=== PATIENT | female | born 1950 | race Caucasian/White ===

== ENCOUNTER → 2018-12-01 | Outpatient (CLI) | payer MEDICARE, OTHER ==
[~2018-12-01] MED LIST: ASCO500T20 PO; ATOR40TA70 PO; CALC-151 PO; CITA20TA4 PO; CYCL10TA9 PO; ESTR1PAT33 TD; MAGN100T3 PO; NF-FLON16G NS; OMEG-12 PO; OXYC1TAB12 PO; POTA99TA7 PO; VITA150T PO; [UNRECOGNIZED DRUG - CODE] PO
--- NOTE | 2018-12-01 13:36 | Diagnostic Imaging Report ---
INDICATION: Back pain and back spasm as well as pain extending into the left leg. TECHNIQUE: Multiplanar, multisequence imaging of the thoracic spine was performed without contrast. COMPARISON: No prior studies are available for comparison. FINDINGS: Curvature and alignment of the thoracic spine is normal. Vertebral body heights are maintained. The marrow signal intensity is unremarkable. No geographic marrow lesion or compression fracture is seen. Mild generalized disc desiccation is noted. No significant disc space narrowing is seen. The thoracic cord does show normal homogeneous signal intensity and normal morphology. No focal disc protrusion is seen. No central canal or neural foraminal narrowing is identified. The paraspinous tissues are unremarkable. IMPRESSION: Mild generalized thoracic spondylosis. No focal disc protrusion, central canal or neural foraminal stenosis is seen. No acute compression fracture is detected. Dictated by: Dictated on workstation # [id number]
== END ==
LOC: RAD 12:32
PROVIDERS: ATTEND Pain Medicine Interventional Pain Medicine
DX: M47.814 Spondylosis without myelopathy or radiculopathy, thoracic region (principal)
CPT/HCPCS: 72146

== ENCOUNTER 2019-10-10 05:34 | Outpatient (CLI) | payer MEDICARE, OTHER ==
[~2019-10-10] VITALS: Ht 165 cm; Wt 88.1 kg
[2019-10-10] MEDS ORDERED: CHOL5000 PO (10:57)
[2019-10-10] MEDS ORDERED: CITA10TA7 PO (10:57)
[2019-10-10] MEDS ORDERED: VITA1CAP19 PO (10:57)
[2019-10-10] MEDS ORDERED: ERGO50006 PO (10:57)
[2019-10-10] MEDS ORDERED: CA C1TAB79 PO (10:57)
[2019-10-10] MEDS ORDERED: FEXO180T84 PO (10:57)
[2019-10-10] MEDS ORDERED: MAGN500C15 PO (10:57)
[2019-10-10] MEDS ORDERED: CYAN250010 PO (10:57)
[2019-10-10] MEDS ORDERED: POTA99TA21 PO (10:57)
[2019-10-10] MEDS ORDERED: LISI10TA2 PO (10:57)
[2019-10-10] MEDS ORDERED: FLUT9.9S NS (10:57)
[2019-10-10] MEDS ORDERED: UBID100C44 PO (10:57)
[2019-10-10] MEDS ORDERED: PITA4TAB2 PO (10:57)
[2019-10-10] MEDS ORDERED: TURM538C PO (10:57)
[2019-10-10] MEDS ORDERED: ASCO500C17 PO (10:57)
[2019-10-10] MEDS ORDERED: ESTR1PAT76 TD (10:57)
[2019-10-10] MEDS ORDERED: OMEG-141 PO (10:57)
[2019-10-10] MEDS ORDERED: METF-397 PO (10:57)
== END 2019-10-10 11:04 | disposition home or self-care (01) ==
LOC: PREOP 05:34
PROVIDERS: ATTEND Surgery
DX: Z01.818 Encounter for other preprocedural examination (principal)

== ENCOUNTER 2020-12-03 05:41 | Outpatient (RCR) | payer MEDICARE, OTHER ==
[~2020-12-03] VITALS: Ht 165.1 cm; Wt 88.1 kg
[~2020-12-03 05:41] MED LIST changes: +ASCO500C17 PO; +CA C1TAB79 PO; +CHOL5000 PO; +CITA10TA7 PO; +CYAN250010 PO; +ERGO50006 PO; +ESTR1PAT76 TD; +FEXO180T84 PO; +FLUT9.9S NS; +LISI10TA25 PO; +MAGN500C15 PO; +METF-397 PO; +OMEG-141 PO; +PITA4TAB2 PO; +POTA99TA21 PO; +TURM538C PO; +UBID100C44 PO; +VITA1CAP19 PO
== END 2020-12-04 12:43 | disposition home or self-care (01) ==
LOC: PREOP 05:41
PROVIDERS: ATTEND Surgery
DX: Z01.818 Encounter for other preprocedural examination (principal)

== ENCOUNTER 2020-12-10 07:36 | Day surgery (SDC) | payer MEDICARE, OTHER ==
[~2020-12-10] VITALS: Ht 165 cm; Wt 88.0 kg
[2020-12-10] MEDS ORDERED: LACTATED RINGERS 1,000 ML IV ONE (07:42)
[2020-12-10] MEDS ORDERED: LACTATED RINGERS 1,000 ML IV STA (07:47)
[2020-12-10] MEDS ORDERED: PROPOFOL INJECTION 50 ML IV ONE (07:57)
[2020-12-10] MEDS ORDERED: MIDAZOLAM 2 MG/2 ML (VERSED) VIAL ONE (07:57)
[2020-12-10 07:59] VITALS: BP 177/100
--- NOTE | 2020-12-10 08:19 | Progress Note-Pre Operative ---
Pre-Operative Progress Note H&P Reviewed The H&P was reviewed, patient examined and no changes noted. Time Seen by Provider: 08:16 Date H&P Reviewed: Dec 10, 2020 Time H&P Reviewed: 08:17 Pre-Operative Diagnosis: Hx of colon polyps VERNON ROWAN DO Dec 10, 2020 08:19
--- NOTE | 2020-12-10 09:21 | Progress Note-Post Operative ---
Post-Operative Progess Note Surgeon (s)/Tobacco Checkout Clerk (s) Surgeon VERNON ROWAN DO Tobacco Checkout Clerk: LYUBOV Arrieta Pre-Operative Diagnosis Hx of colon polyps Post-Operative Diagnosis Polyps diverticula internal hemorrhoid Procedure & Operative Findings Date of Procedure 12/10/20 Procedure Performed/Findings colon with snare Anesthesia Type IV sedation by MICROCOMPUTER SUPPORT SPECIALIST Estimated Blood Loss Estimated blood loss (mL): scant Specimens/Packing Specimens Removed asc colon polyp near tattoo desc colon polyp rectal polyp VERNON ROWAN DO Dec 10, 2020 09:21
--- NOTE | 2020-12-10 09:21 | Endoscopy Discharge Instruct ---
Endo Procedure/Findings Findings 1.: Polyp 2.: Diverticulosis 3.: Internal Hemorrhoids Discharge Instructions - Activity: You might feel a little sleepy until tomorrow. This is due to the medicine you received to relax you. Until tomorrow, you should: NOT drive a car, operate machinery or power tools. NOT drink any alcoholic beverages. NOT make any important decisions or sign importortant papers. Do not return to work until tomorrow, unless otherwise instructed. Resume previous activities tomorrow. Diet: Start by taking liquids. If you tolerate liquids, advance to solid food. 1.: Colonoscopy in 1 year Notify Physician - If you experience excessive bleeding, unusual abdominal pain, fever, or chest pain, contact your doctor immediately. VERNON ROWAN DO Dec 10, 2020 09:21
[2020-12-10 09:25] VITALS: BP 106/52
[2020-12-10 09:30] VITALS: BP 111/55
--- NOTE | 2020-12-10 09:33 | Anesthesia-General Post-Op ---
MAC Patient Condition Mental Status/LOC: Same as Preop Cardiovascular: Satisfactory Nausea/Vomiting: Absent Respiratory: Satisfactory Pain: Controlled Complications: Absent Post Op Complications Complications None Follow Up Care/Instructions Patient Instructions None needed. Anesthesiology Discharge Order Discharge Order Patient is doing well, no complaints, stable vital signs, no apparent adverse anesthesia problems. No complications reported per nursing. SHASHANK OGDEN CRNA Dec 10, 2020 09:33
[2020-12-10 09:35] VITALS: BP 137/76
[2020-12-10 10:00] VITALS: BP 137/76
[2020-12-10 10:03] VITALS: BP 137/70
--- NOTE | 2020-12-10 21:50 | OPERATIVE REPORT ---
DATE OF SERVICE: PREOPERATIVE DIAGNOSIS: History of colon polyps. POSTOPERATIVE DIAGNOSES: Colon polyps, diverticula, internal hemorrhoids. PROCEDURE: Colonoscopy with snare polypectomy. SURGEON: Frederick Nolasco DO [employer] PRESS HAND: MAHOGANY Arrieta. ANESTHESIA: IV sedation by the IZA. SPECIMEN: Polyp from the ascending colon and one polyp from the descending colon and one rectal polyp. INDICATION FOR PROCEDURE: The patient has a history of colon polyps, needed a workup. FINDINGS: The patient had a polyp in the ascending colon, which was right near where she had another large polyp removed and right near the tattooing, could see the tattooing. She also had a polyp in the descending colon and one in the rectum. PROCEDURE NOTE: After informed consent was obtained, the patient was brought to the endoscopy suite, placed in bed in left lateral decubitus position. She was administered IV sedation by the PILE DRIVING TECHNICIAN who then monitored her vitals the entire time, heart rate, blood pressure and pulse ox and the scope was inserted. Pushed in, on the way in noted some diverticula, took a picture of these, able to push into about 150 cm, able to get to the cecum, took a picture of appendiceal orifice, noted the ileocecal valve and then slowly withdrew the scope insufflating the circumferential galindo looking the cecum, up into the ascending colon and then the ascending colon right where the previous polyp had removed I could see the tattooing. There was a large flat polyp, had to take this in 3 pieces to be able to remove all of it, and suctioned this up and then continued up to the hepatic flexure, down the transverse colon, splenic flexure, into the descending colon. In the descending colon, saw another polyp, did another snare polypectomy of this, suctioned this up and then continued down into the sigmoid and finally into the rectum. In the rectum, saw another polyp, did another snare polypectomy and then retroflexed the scope, saw some internal hemorrhoids, took a picture of this and then removed the scope. The patient tolerated the procedure, recovered in endoscopy suite. Job ID: [id number] DocumentID: [id number] Dictated Date: 12/10/2020 16:10:02 Clin Tech Date: 12/10/2020 21:49:23 Dictated By: FREDERICK NOLASCO DO
== END 2020-12-10 10:03 | disposition home or self-care (01) ==
LOC: ENDO 07:36
PROVIDERS: ATTEND Surgery
DX: D12.2 Benign neoplasm of ascending colon (principal); D12.8 Benign neoplasm of rectum; K57.30 Diverticulosis of large intestine without perforation or abscess without bleeding; K64.8 Other hemorrhoids; I10 Essential (primary) hypertension; E11.9 Type 2 diabetes mellitus without complications; M19.90 Unspecified osteoarthritis, unspecified site; E66.9 Obesity, unspecified; Z68.32 Body mass index [BMI] 32.0-32.9, adult; Z79.899 Other long term (current) drug therapy; Z88.2 Allergy status to sulfonamides; Z88.1 Allergy status to other antibiotic agents; Z88.8 Allergy status to other drugs, medicaments and biological substances; Z86.010 Personal history of colon polyps; Z90.711 Acquired absence of uterus with remaining cervical stump; Z80.9 Family history of malignant neoplasm, unspecified
CPT/HCPCS: 82962

== ENCOUNTER 2021-09-19 18:09 | Emergency (ER) | payer MEDICARE, OTHER ==
[~2021-09-19] VITALS: Ht 165.1 cm; Wt 83.5 kg
[~2021-09-19 18:09] MED LIST changes: -CITA10TA7 PO; +CITA10TA9 PO; -POTA99TA21 PO; +POTA99TA26 PO
[2021-09-19] MEDS ORDERED: fentaNYL INJ 100 MCG/2 ML AMP IVP STA (18:31)
--- NOTE | 2021-09-19 18:42 | ED Lower Extremity ---
General Chief Complaint: COVID19 Suspect/Confirmed Stated Complaint: COVID+,LT FOOT NUMBNESS Source: patient Exam Limitations: no limitations History of Present Illness Date Seen by Provider: Sep 19, 2021 Time Seen by Provider: 18:11 Initial Comments 71-year-old female with past medical history of arthritis, low back pain with a spinal cord stimulator, and COVID positive as of 09/09 with symptoms starting 09/05 (symptoms were cough, fever, loss of taste/smell) coming in due to left lower extremity pain. Began around 4 PM, slower onset, is severe, throbbing, she has never had pain like this before. She says it starts in her buttocks and goes down her foot, and she is endorsing some tingling in her left foot as well. Denies any trauma, chest pain, shortness of breath, abdominal pain, nausea, vomiting, diarrhea, fever, chills, focal weakness, or any other concerns. Allergies and Home Medications Allergies Coded Allergies: Sulfa (Sulfonamide Antibiotics) (Verified Allergy, Severe, ANAPHYLAXIS, 10/17/19) amoxicillin (Verified Allergy, Mild, VAGINAL INFECTION, 10/17/19) cefaclor (Verified Allergy, Mild, VAGINAL INFECTION, 10/17/19) erythromycin base (Verified Allergy, Mild, GI UPSET, 10/17/19) sulfamethoxazole (Verified Allergy, Unknown, UNABLE TO REMEMBER, 10/17/19) trimethoprim (Verified Allergy, Unknown, UNABLE TO REMEMBER, 10/17/19) Patient Home Medication List Home Medication List Reviewed: Yes Ascorbic Acid (Vitamin C) 500 Mg Capsule, 500 MG PO DAILY, (Reported) Entered as Reported by: ERICK HUGO on 10/10/19 1057 Ca Carbonate/Vitamin D3/Vit K (Citracal Soft Chew) 1 Each Tab.chew, 1 EACH PO BID, (Reported) Entered as Reported by: ERICK HUGO on 10/10/19 1057 Cholecalciferol (Vitamin D3) (Vitamin D3) 5,000 Unit Capsule, 5,000 UNIT PO DAILY, (Reported) Entered as Reported by: ERICK HUGO on 10/10/19 1057 Citalopram Hydrobromide (Citalopram HBr) 10 Mg Tablet, 10 MG PO DAILY, (Reported) Entered as Reported by: ERICK HUGO on 10/10/19 105 Cyanocobalamin (Vitamin B-12) (Vitamin B12) 2,500 Mcg Tablet, 1,000 MCG PO DAILY, (Reported) Entered as Reported by: ERICK HUGO on 10/10/19 105 Ergocalciferol (Vitamin D2) (Vitamin D2) 50,000 Unit Capsule, 50,000 UNIT PO Q OTHER WEEK, (Reported) Entered as Reported by: ERICK HUGO on 10/10/19 105 Estradiol (Estradiol Patch Twice weekly 0.05mg/hr) 1 Each Patch.tdwk, 1 EACH TD WEEK, (Reported) Entered as Reported by: ERICK HUGO on 10/10/19 105 Fexofenadine HCl (Kaylin Allergy) 180 Mg Tablet, 180 MG PO DAILY, (Reported) Entered as Reported by: ERICK HUGO on 10/10/19 105 Fluticasone Propionate (Flonase Allergy Relief) 9.9 Ml Vanderbilt.susp, 2 SPRAY NS DAILY, (Reported) Entered as Reported by: ERICK HUGO on 10/10/19 105 Lisinopril (Lisinopril) 10 Mg Tablet, 10 MG PO DAILY, (Reported) Entered as Reported by: ERICK HUGO on 10/10/19 105 Magnesium Oxide (Magnesium) 500 Mg Capsule, 500 MG PO DAILY, (Reported) Entered as Reported by: ERICK HUGO on 10/10/19 105 Metformin HCl (Metformin HCl) 500 Mg Tablet, 500 MG PO DAILY, (Reported) Entered as Reported by: ERICK HUGO on 10/10/19 105 Washington-3/Dha/Epa/Fish Oil (Washington 3 500 Softgel) 1 Each Capsule, 1 EACH PO BID, (Reported) Entered as Reported by: ERICK HUGO on 10/10/19 105 Pitavastatin Calcium (Livalo) 4 Mg Tablet, 4 MG PO DAILY, (Reported) Entered as Reported by: ERICK HUGO on 10/10/19 105 Potassium Gluconate (Potassium) 99 Mg Tablet, 99 MG PO DAILY, (Reported) Entered as Reported by: ERICK HUGO on 10/10/19 1057 Turmeric Root Extract (Turmeric) 538 Mg Capsule, 538 MG PO DAILY, (Reported) Entered as Reported by: ERICK HUGO on 10/10/19 1057 Ubidecarenone (Co Q-10) 100 Mg Capsule, 100 MG PO DAILY, (Reported) Entered as Reported by: ERICK HUGO on 10/10/19 1057 Vitamin B Complex (Super B-50 Complex) 1 Each Capsule, 1 EACH PO DAILY, (Reported) Entered as Reported by: ERICK HUGO on 10/10/19 1057 Review of Systems Constitutional: No chills, No fever EENTM: No blurred vision Respiratory: No cough Cardiovascular: No chest pain Gastrointestinal: No abdominal pain Genitourinary: no symptoms reported Musculoskeletal: back pain, muscle pain Skin: no symptoms reported Psychiatric/Neurological: No Symptoms Reported All Other Systems Reviewed Negative Unless Noted: Yes Past Wlbsgcu-Etyepm-Ddatnn Hx Patient Social History Tobacco Use?: Yes Substance use?: No Immunizations Up To Date Tetanus Booster (TDap): Unknown Seasonal Allergies Seasonal Allergies: Yes Past Medical History Surgeries: Yes (BACK X2, SHOULDER SCOPE) Hysterectomy, Oophorectomy Respiratory: No Currently Using CPAP: No Currently Using BIPAP: No Cardiac: Yes Hypertension Neurological: No Reproductive Disorders: No Sexually Transmitted Disease: No HIV/AIDS: No Genitourinary: No Gastrointestinal: Yes (HX HEPATITIS) Hepatitis Musculoskeletal: Yes (STENOSIS) Arthritis, Chronic Back Pain Endocrine: Yes (PRE-DIABETIC) Diabetes, Non-Insulin dep HEENT: Yes (GLASSES) Loss of Vision: Denies Hearing Impairment: Denies Cancer: No Psychosocial: Yes (CITALAPRAM-HELPS HER TO THINK STRAIGHT) Integumentary: No Blood Disorders: No Adverse Reaction/Blood Tranf: No (HAS HAD BLOOD WITH NO REACTION) Family Medical History Cardiovascular disease 19 FATHER Completed stroke 19 MOTHER Diabetes mellitus 19 FATHER FH: uterine cancer 19 MOTHER Hypertension 19 MOTHER G8 BROTHER Kidney disease G8 BROTHER Myocardial infarction 19 FATHER G8 BROTHER Physical Exam Vital Signs Vital Signs - First Documented 09/19/21 18:33 Temp 37.1 Pulse 108 Resp 23 B/P (MAP) 156/106 (123) Pulse Ox 99 O2 Delivery Room Air Capillary Refill : Height, Weight, BMI Height: 5'5.00" Weight: 190lbs. oz. 86.422309it; 32.32 BMI Method: General Appearance: WD/WN, no apparent distress HEENT: PERRL/EOMI, normal ENT inspection, pharynx normal Neck: non-tender, full range of motion, supple, normal inspection Cardiovascular: no edema, no murmur, tachycardia Respiratory: chest non-tender, lungs clear, normal breath sounds, no respiratory distress, no accessory muscle use Gastrointestinal: normal bowel sounds, non tender, soft; No distended, No guarding, No rebound Back: normal inspection, no CVA tenderness, no vertebral tenderness Legs: bilateral leg other (Right lower extremity is pink, good capillary refi ll, normal DP and PT pulses, neurovascularly intact, left lower extremity is white, no pulses palpable, normal motor exam, normal sensation) Progress/Results/Core Measures Results/Orders Lab Results Laboratory Tests Test 09/19/21 18:24 09/19/21 20:53 Range/Units White Blood Count 4.4 4.3-11.0 10^3/uL Red Blood Count 4.69 3.80-5.11 10^6/uL Hemoglobin 15.0 11.5-16.0 g/dL Hematocrit 43 35-52 % Mean Corpuscular Volume 91 80-99 fL Mean Corpuscular Hemoglobin 32 25-34 pg Mean Corpuscular Hemoglobin Concent 35 32-36 g/dL Red Cell Distribution Width 12.8 10.0-14.5 % Platelet Count 270 130-400 10^3/uL Mean Platelet Volume 9.4 9.0-12.2 fL Immature Granulocyte % (Auto) 4 % Neutrophils (%) (Auto) 61 42-75 % Lymphocytes (%) (Auto) 27 12-44 % Monocytes (%) (Auto) 7 0-12 % Eosinophils (%) (Auto) 1 0-10 % Basophils (%) (Auto) 1 0-10 % Neutrophils # (Auto) 2.7 1.8-7.8 X 10^3 Lymphocytes # (Auto) 1.2 1.0-4.0 X 10^3 Monocytes # (Auto) 0.3 0.0-1.0 X 10^3 Eosinophils # (Auto) 0.0 0.0-0.3 10^3/uL Basophils # (Auto) 0.1 0.0-0.1 10^3/uL Immature Granulocyte # (Auto) 0.2 H 0.0-0.1 10^3/uL Neutrophils % (Manual) 51 % Lymphocytes % (Manual) 16 % Monocytes % (Manual) 13 % Eosinophils % (Manual) 0 % Basophils % (Manual) 0 % Band Neutrophils 8 % Atypical Lymphocytes 7 % Reactive Lymphocytes 5 % Platelet Estimate NORMAL Blood Morphology Comment NORMAL Prothrombin Time 15.3 H 12.2-14.7 SEC INR Comment 1.2 0.8-1.4 Activated Partial Thromboplast Time 31 24-35 SEC D-Dimer > 20.00 H 0.00-0.49 UG/ML Sodium Level 138 135-145 MMOL/L Potassium Level 3.7 3.6-5.0 MMOL/L Chloride Level 100 98-107 MMOL/L Carbon Dioxide Level 20 L 21-32 MMOL/L Anion Gap 18 H 5-14 MMOL/L Blood Urea Nitrogen 17 7-18 MG/DL Creatinine 0.50 L 0.60-1.30 MG/DL Estimat Glomerular Filtration Rate 122 BUN/Creatinine Ratio 34 Glucose Level 122 H 70-105 MG/DL Lactic Acid Level 2.11 *H 2.34 *H 0.50-2.00 MMOL/L Calcium Level 9.0 8.5-10.1 MG/DL Corrected Calcium 9.6 8.5-10.1 MG/DL Total Bilirubin 0.7 0.1-1.0 MG/DL Aspartate Amino Transf (AST/SGOT) 58 H 5-34 U/L Alanine Aminotransferase (ALT/SGPT) 51 0-55 U/L Alkaline Phosphatase 80 40-136 U/L Troponin I < 0.30 <0.30 NG/ML Total Protein 7.7 6.4-8.2 GM/DL Albumin 3.2 3.2-4.5 GM/DL My Orders Orders - URBAN GREGORY MD Cbc With Automated Diff (09/19/21 18:31) Comprehensive Metabolic Panel (09/19/21 18:31) Fibrin Degradation Products (09/19/21 18:31) Lactic Acid Analyzer (09/19/21 18:31) Protime With Inr (09/19/21 18:31) Partial Thromboplastin Time (09/19/21 18:31) Troponin I Fs (09/19/21 18:31) Fentanyl Inj (Sublimaze Injection) (09/19/21 18:31) Ekg Tracing (09/19/21 18:31) Cta Aorta W Keo Runoff W/Wo (09/19/21 18:31) Iohexol Injection (Omnipaque 350 Mg/Ml 1 (09/19/21 18:45) Received Contrast (Hold Metformin- Contr (09/19/21 18:45) Sodium Chloride Flush (Catheter Flush Sy (09/19/21 18:45) Ns (Ivpb) (Sodium Chloride 0.9% Ivpb Bag (09/19/21 18:45) Manual Differential (09/19/21 18:24) Hydromorphone Injection (Dilaudid Inject (09/19/21 19:30) Heparin Drip 33467 Unit/500ml (Heparin (09/19/21 19:45) Heparin (Bolus Per Protocol) (Heparin (B (09/19/21 19:45) Initiate Heparin Full Protocol (09/19/21 19:41) Hydromorphone Injection (Dilaudid Inject (09/19/21 21:15) Medications Given in ED Current Medications Medications Dose Ordered Sig/Marta Route Start Time Stop Time Status Last Admin Dose Admin Hydromorphone HCl 0.5 mg ONCE ONCE IV 09/19/21 19:30 09/19/21 19:31 DC 09/19/21 19:34 0.5 MG Hydromorphone HCl 1 mg ONCE ONCE IV 09/19/21 21:15 09/19/21 21:16 DC 09/19/21 21:27 1 MG Iohexol 140 ml ONCE ONCE IV 09/19/21 18:45 09/19/21 18:46 DC 09/19/21 19:14 140 ML Sodium Chloride 10 ml NEEDED PRN IV 09/19/21 18:45 09/19/21 19:15 10 ML Sodium Chloride 100 ml ONCE ONCE IV 09/19/21 18:45 09/19/21 18:46 DC 09/19/21 19:15 100 ML Vital Signs/I&O 09/19/21 18:33 Temp 37.1 Pulse 108 Resp 23 B/P (MAP) 156/106 (123) Pulse Ox 99 O2 Delivery Room Air Progress Progress Note : Progress Note 71-year-old female with above history coming in due to left lower extremity pain. The patient was mildly tachycardic on presentation and hypertensive but otherwise vital stable. Physical exam with her left lower extremity white compared to her pink right lower extremity. I am unable to palpate a pulse or Doppler pulse in her left lower extremity and I am highly concerned for an arterial occlusion but phlegmasia alba dolens is on the differential. An IV was placed and she was given fentanyl for pain control. CTA abdomen and pelvis with bilateral lower extremity runoff ordered. Lactate was 2.11 just slightly elevated, but labs otherwise okay with normal creatinine, negative troponin, normal electrolytes. Her D-dimer is undetectably high greater than 20. This could be related to her recent Covid infection. CTA on my interpretation she does have some groundglass opacities in her lungs which is consistent with her recent Covid infection. She is technically day 15 of illness so should be out of quarantine. I do not see any obvious dissection so I empirically gave her a heparin bolus followed by a drip due to concerns for clot. The formal radiology read does show she loses runoff around the calf on the left lower extremity and does have some constitution around the posterior tibial artery but nowhere else distal. I contacted to discuss the case with the vascular surgeon at 19:55 PM and I am awaiting a callback. Called back at 20:40 and confirmed the images have been clouded over. The vascular surgeon was paged at 20:28. They called back at 20:[address] Palmer, vascular surgeon, is unable to except given the patient's recent COVID status and they don't have an ICU bed. Called [facility] transfer line at 20:45. They have no beds available. Called [facility] one call at 20:47. Vascular surgery is on diversion because they are doing a heart transplant, and anticipate being on diversion all night. Called [facility] at 20:54, and they have no beds. Called [facility] at 20:56. They are on diversion. Called [facility] One-Call at 20:58. Both [place] and [place] are on diversion, they may be able to accept as an ER to ER transfer in [place]. Called back at 22:09, they do not have the ability to see the patient. Called [facility] at 21:19. No answer x2. Called [facility] at 21:21. They have no COVID beds available. Discussed that she is day 15 of symptoms so they are checking to see if they can take her. Dr. Alyse Bradley said there is nothing he is able to do. Called [facility] at 21:32. They are on diversion. Called [facility] at 21:35. They are on diversion. Called [facility] dispatch at 21:41. Dr. Mendez was able to accept her to [facility]. Immediately called for air transport given the time sensitivity. Nobody is currently flying to [place] due to visibility there. There is the possibility of a fixed wing available in over 4 hours. Then contacted [facility] for transport given the patient needs vascular surgery evaluation sooner, and we do not have any other options. We tried all available hospitals that would potentially be closer for transport, and none are available. Initial ECG Impression Date: Sep 19, 2021 Initial ECG Impression Time: 18:29 Initial ECG Rate: 102 Initial ECG Rhythm: S.Tach Comment Wide QRS with a left bundle branch block, Sgarbossa criteria negative Diagnostic Imaging Diagonstic Imaging: CT (CTA chest/abd/pelv with bilateral lower extremity runoff) Comments [facility], [place] NAME: TIFFANY [facility]ANNAH [facility] REC#: [id number] PT STATUS: REG ER : 1950 PHYSICIAN: URBAN GREGORY MD ADMIT DATE: 09/19/21/ER FS Draft Date of Exam:09/19/21 CTA AORTA W KEO RUNOFF W/WO INDICATION: Left lower extremity is white and pulseless. COMPARISON: None available TECHNIQUE: Multiple contiguous axial CT images are obtained through the chest, abdomen, pelvis, and bilateral lower extremities after the intravenous injection of contrast. Sagittal and coronal reformatted images are reviewed. Coronal MIPS reformatted images of the chest are reviewed. All CT scans use one or more of the following dose optimizing techniques: automated exposure control, MA and/or KvP adjustment based on patient size and exam type or iterative reconstruction. FINDINGS: Mildly prominent mediastinal and hilar lymph nodes are present. This includes a precarinal lymph node which measures 1.3 cm in short dimension. Scattered vascular calcifications without aneurysm or dissection of the thoracic aorta. The heart is within normal limits in size. No significant pericardial effusion. No pleural effusion. Patchy geographic groundglass opacities are identified throughout the lungs bilaterally. This is greatest within the right upper lobe and left lower lobe. No significant filling defect within the central or segmental pulmonary arteries. Azygos lobe fissure is incidentally noted. Scattered osseous degenerative changes without acute osseous abnormality. Stimulator leads are present extending into the central canal within the lower thoracic spine. The liver, spleen, adrenal glands, and pancreas are unremarkable. The gallbladder is unremarkable. Right renal cyst versus calyceal diverticulum. No evidence of hydronephrosis. The urinary bladder is unremarkable. Uterus is not visualized, likely surgically absent. No abnormal adnexal mass lesion. Small fat-containing bilateral inguinal hernias. Mild colonic diverticulosis without CT evidence of diverticulitis. No bowel obstruction or pneumatosis. No significant adenopathy, free air, or free fluid within the abdomen or pelvis. Significant postsurgical changes are noted within the lumbar spine with scattered osseous degenerative changes present. Severe vascular calcifications are identified within the abdominal aorta and its branch vessels. Mild narrowing of the origin of the celiac artery. Mild to moderate stenosis within the bilateral common iliac arteries. Minimal multifocal stenosis within the right superficial femoral artery. A 2 vessel runoff is noted on the right to the level of the ankle with the peroneal vein not optimally visualized inferiorly. Moderate stenosis involving the left common femoral artery with multifocal at least mild stenosis involving the left profunda femoris artery. Multifocal [id number] stenosis involving the left superficial femoral artery. Mild stenosis involving the left popliteal artery. A three-vessel runoff is noted to the left mid calf, though there is only a single vessel runoff to the left ankle via the left posterior tibial artery. No acute osseous abnormality within bilateral lower extremities. IMPRESSION: Advanced scattered vascular calcifications with multifocal stenosis as described above. This includes within the bilateral common iliac arteries, left common femoral artery, bilateral superficial femoral arteries, and left popliteal artery. Three-vessel runoff to the mid left calf though only a single vessel is seen to the level of the left ankle, the left posterior tibial artery. This is consistent with significant underlying tibioperoneal disease. No significant pulmonary embolus. Extensive pulmonary opacities, most likely related to underlying infection, such as Covid-19. Mild mediastinal adenopathy, likely reactive. Additional postsurgical and chronic findings as described above. Should further evaluation of the vasculature within the lower extremities be desired, further evaluation with conventional angiography could be considered. Dictated on workstation # [id number] Dict: 09/19/211926 Trans: 09/19/[id number] Interpreted by: ИРИНА BRIONES MD Electronically signed by: Departure Impression Primary Impression: PVD (peripheral vascular disease) Additional Impressions: Leg pain, left Vascular occlusion Disposition: XFER SHT-TRM HOSP Condition: Stable Transfer Transfer Reason: Exceeds level of care Time Spoke to Accepting Phy: 21:55 Transfer Progress Notes Transferring to [facility], see the progress note for all the other attempts at other facilities (could not find closer hospital). Attempted 2 different flight companies and there is dense fog in [place] so nobody flying there tonight. Contacted [facility] for ground transport as this is our only option at this point. Transfer Facility: [facility] Method of Transfer: EMS Departure-Patient Inst. Referrals: SHAMA WHYTE MD (PCP/Family) Primary Care Physician URBAN GREGORY MD Sep 19, 2021 18:41
[2021-09-19] MEDS ORDERED: CATHETER FLUSH 10 ML SYR IV PRN (18:45)
[2021-09-19] MEDS ORDERED: NS 100 ML (IVPB) BAG IV ONE (18:45)
[2021-09-19] MEDS ORDERED: HOLD METFORMIN - RECEIVED CONTRAST 20 ML VIAL IV SCH (18:45)
[2021-09-19] MEDS ORDERED: IOHEXOL 350 MG/ML 150 ML (OMNIPAQUE 350) VIAL IV ONE (18:45)
[2021-09-19 18:53] LABS: HEMATOCRIT 43 % (35-52); MEAN CORPUSCULAR HEMOGLOBIN 32 pg (25-34); MEAN CORPUSCULAR HGB CONC 35 g/dL (32-36); MEAN CORPUSCULAR VOLUME 91 fL (80-99); PLATELET COUNT 270 10^3/uL (130-400); WHITE BLOOD COUNT 4.4 10^3/uL (4.3-11.0)
[2021-09-19 18:54] LABS: BASOPHILS # (AUTO) 0.1 10^3/uL (0.0-0.1); BASOPHILS % (AUTO) 1 % (0-10); EOSINOPHILS % (AUTO) 1 % (0-10); LYMPHOCYTES # (AUTO) 1.2 X 10^3 (1.0-4.0); LYMPHOCYTES % (AUTO) 27 % (12-44); MEAN PLATELET VOLUME 9.4 fL (9.0-12.2); MONOCYTES # (AUTO) 0.3 X 10^3 (0.0-1.0); MONOCYTES % (AUTO) 7 % (0-12); NEUTROPHILS # (AUTO) 2.7 X 10^3 (1.8-7.8); NEUTROPHILS % (AUTO) 61 % (42-75)
[2021-09-19 19:00] LABS: INR 1.2 (0.8-1.4); PROTHROMBIN TIME PATIENT 15.3 SEC (12.2-14.7)
[2021-09-19 19:03] LABS: ATYPICAL LYMPHOCYTES 7 %; BAND NEUTROPHILS 8 %; BASOPHILS % (MANUAL) 0 %; EOSINOPHILS % (MANUAL) 0 %; LYMPHOCYTES % (MANUAL) 16 %; MONOCYTES % (MANUAL) 13 %; NEUTROPHILS % (MANUAL) 51 %; PARTIAL THROMBOPLASTIN TIME 31 SEC (24-35); REACTIVE LYMPHOCYTES 5 %
[2021-09-19 19:04] LABS: PLATELET ESTIMATE NORMAL; RBC MORPH NORMAL
[2021-09-19 19:08] LABS: POTASSIUM 3.7 MMOL/L (3.6-5.0); SODIUM 138 MMOL/L (135-145)
[2021-09-19 19:09] LABS: ALANINE AMINOTRANSFERASE 51 U/L (0-55); ALBUMIN 3.2 GM/DL (3.2-4.5); ALKALINE PHOSPHATASE 80 U/L (40-136); BILIRUBIN,TOTAL 0.7 MG/DL (0.1-1.0); BUN/CREATININE RATIO 34; CARBON DIOXIDE 20 MMOL/L (21-32); CHLORIDE 100 MMOL/L (98-107); GFR ESTIMATED 122; GLUCOSE 122 MG/DL (70-105); TOTAL PROTEIN 7.7 GM/DL (6.4-8.2)
[2021-09-19] MEDS ORDERED: HYDROmorphone 2 MG/ML VIAL (DILAUDID) IV ONE ×3 (19:30→23:30)
[2021-09-19 19:37] LABS: FIBRIN DEGRADATION PRODUCTS > 20.00 UG/ML (0.00-0.49)
[2021-09-19] MEDS ORDERED: HEParin DRIP 25000 UNIT/500ML 500 ML IV SCH (19:45)
[2021-09-19] MEDS ORDERED: HEParin 1000 UNIT/ML (10ML VIAL) FOR BOLUS IV SCH (19:45)
--- NOTE | 2021-09-19 19:46 | Diagnostic Imaging Report ---
INDICATION: Left lower extremity is white and pulseless. COMPARISON: None available TECHNIQUE: Multiple contiguous axial CT images are obtained through the chest, abdomen, pelvis, and bilateral lower extremities after the intravenous injection of contrast. Sagittal and coronal reformatted images are reviewed. Coronal MIPS reformatted images of the chest are reviewed. All CT scans use one or more of the following dose optimizing techniques: automated exposure control, MA and/or KvP adjustment based on patient size and exam type or iterative reconstruction. FINDINGS: Mildly prominent mediastinal and hilar lymph nodes are present. This includes a precarinal lymph node which measures 1.3 cm in short dimension. Scattered vascular calcifications without aneurysm or dissection of the thoracic aorta. The heart is within normal limits in size. No significant pericardial effusion. No pleural effusion. Patchy geographic groundglass opacities are identified throughout the lungs bilaterally. This is greatest within the right upper lobe and left lower lobe. No significant filling defect within the central or segmental pulmonary arteries. Azygos lobe fissure is incidentally noted. Scattered osseous degenerative changes without acute osseous abnormality. Stimulator leads are present extending into the central canal within the lower thoracic spine. The liver, spleen, adrenal glands, and pancreas are unremarkable. The gallbladder is unremarkable. Right renal cyst versus calyceal diverticulum. No evidence of hydronephrosis. The urinary bladder is unremarkable. Uterus is not visualized, likely surgically absent. No abnormal adnexal mass lesion. Small fat-containing bilateral inguinal hernias. Mild colonic diverticulosis without CT evidence of diverticulitis. No bowel obstruction or pneumatosis. No significant adenopathy, free air, or free fluid within the abdomen or pelvis. Significant postsurgical changes are noted within the lumbar spine with scattered osseous degenerative changes present. Severe vascular calcifications are identified within the abdominal aorta and its branch vessels. Mild narrowing of the origin of the celiac artery. Mild to moderate stenosis within the bilateral common iliac arteries. Minimal multifocal stenosis within the right superficial femoral artery. A 2 vessel runoff is noted on the right to the level of the ankle with the peroneal vein not optimally visualized inferiorly. Moderate stenosis involving the left common femoral artery with multifocal at least mild stenosis involving the left profunda femoris artery. Multifocal [id number] stenosis involving the left superficial femoral artery. Mild stenosis involving the left popliteal artery. A three-vessel runoff is noted to the left mid calf, though there is only a single vessel runoff to the left ankle via the left posterior tibial artery. No acute osseous abnormality within bilateral lower extremities. IMPRESSION: Advanced scattered vascular calcifications with multifocal stenosis as described above. This includes within the bilateral common iliac arteries, left common femoral artery, bilateral superficial femoral arteries, and left popliteal artery. Three-vessel runoff to the mid left calf though only a single vessel is seen to the level of the left ankle, the left posterior tibial artery. This is consistent with significant underlying tibioperoneal disease. No significant pulmonary embolus. Extensive pulmonary opacities, most likely related to underlying infection, such as Covid-19. Mild mediastinal adenopathy, likely reactive. Additional postsurgical and chronic findings as described above. Should further evaluation of the vasculature within the lower extremities be desired, further evaluation with conventional angiography could be considered. Dictated by: Dictated on workstation # [id number]
[2021-09-19 23:54] VITALS: BP 129/68
== END 2021-09-19 23:54 | disposition short-term general hospital (02) ==
LOC: EDUNIT# 18:09 → ER FS 18:10
DX: I73.9 Peripheral vascular disease, unspecified (principal); M79.605 Pain in left leg; I99.8 Other disorder of circulatory system; R00.0 Tachycardia, unspecified; I10 Essential (primary) hypertension; E11.9 Type 2 diabetes mellitus without complications; Z79.84 Long term (current) use of oral hypoglycemic drugs; Z79.899 Other long term (current) drug therapy
CPT/HCPCS: 36415; 75635; 80053; 83605; 84484; 85007; 85027; 85379; 85610; 85730; 93005; 96374; 96375

== ENCOUNTER → 2022-09-18 | Outpatient (CLI) | payer MEDICARE, OTHER ==
--- NOTE | 2022-09-18 10:45 | Diagnostic Imaging Report ---
INDICATION: Chronic right knee pain. FINDINGS: 3 views. Joint spaces are well-maintained with smooth articulating surfaces. Very mild hypertrophic change seen along the medial tibial plateau. There are well-corticated bony calcification noted along the medial and lateral femoral condyles in the region of the collateral ligament. There is also one in the suprapatellar region along the quadriceps tendon attachment. IMPRESSION: 1. Multiple soft tissue calcifications which appear chronic in nature as described. Mild arthritic changes noted of the knee. Dictated by: Dictated on workstation # [id number]
== END ==
LOC: RAD FS 10:19
PROVIDERS: ATTEND Family Medicine
DX: M17.11 Unilateral primary osteoarthritis, right knee (principal); M25.861 Other specified joint disorders, right knee
CPT/HCPCS: 73562